=== PATIENT | female | born 1975 | race Caucasian/White ===

== ENCOUNTER 2021-05-12 23:16 | Emergency (ER) | payer OTHER ==
[~2021-05-12] VITALS: Ht 170.2 cm; Wt 68.0 kg
[~2021-05-12 23:16] MED LIST: ACCUNEB SO1.25 MG/1; ADVAIR HFA115 MCG/21; CEFDINIR PO; CLEOCIN HCL300 MG PO; CODEINE; DESYREL50 MG PO; DILANTIN100 MG PO; FLEXERIL PO; FLOMAX PO; IBUPROFEN 600600 M1 PO; LEVAQUIN 500 M500 MG PO; LEXAPRO 10 MG T10 MG; LORTABELXR PO; MOTRIN; NAPROSYN500 MG PO; NOHOMEMEDICATIONS; NORCO 5-325 TA1 EACH PO; ONDANSETRON HCL4 M2; PHENERGAN 25 MG25 MG PO; PREDNISONE 10 M10 M1 PO; PREDNISONE 20 M20 MG PO; PRENA1 CHEW TA1.4 MG; PRENATAL; TRAZODONE 150150 M1 PO; ULTRAM 50MG TAB50 MG PO; VIBRAMYCIN 100100 MG PO; WELLBUTRIN 100100 MG NG; ZANTAC 150MG T150 MG PO; ZOFRAN4 MG PO; ZOLOFT; ZPAK PO
[2021-05-12 23:36] VITALS: BP 137/101
== END 2021-05-13 01:13 | disposition left against medical advice (07) ==
LOC: M.ERS 23:16
DX: R50.9 Fever, unspecified (principal); R05.9 Cough, unspecified; R09.81 Nasal congestion; M79.10 Myalgia, unspecified site; G40.909 Epilepsy, unspecified, not intractable, without status epilepticus; J45.909 Unspecified asthma, uncomplicated; Z53.21 Procedure and treatment not carried out due to patient leaving prior to being seen by health care provider; Z98.890 Other specified postprocedural states; Z90.49 Acquired absence of other specified parts of digestive tract; Z87.442 Personal history of urinary calculi; Z88.0 Allergy status to penicillin; Z88.1 Allergy status to other antibiotic agents